=== PATIENT | female | born 1990 | race Caucasian/White ===

== ENCOUNTER 2019-11-23 13:10 | Day surgery (SDC) | payer OTHER, SELFPAY ==
[2019-11-18 15:12] VITALS: BMI 25.1
[2019-11-23] VITALS (12 sets, daily range): BP systolic 111–138; BP diastolic 65–86; PULSE 65–93; RESP 11–20; TEMP 36.2–36.9; O2SAT 95–100; BMI 25.1
--- NOTE | 2019-11-23 | PATH_ITS ---
[facility] Accession Number: [id number] . 01 Material submitted: . gallbladder - GALLBLADDER AND CONTENTS . 02 Diagnosis: Gallbladder and Contents: Chronic cholecystitis, cholesterolosis, and cholelithiasis. One benign cystic duct lymph node (0). MRV 11/25/2019 1414 Local . 02 Electronically signed: . Iza Dang MD, Pathologist NPI- [id number] . 01 Gross description: . Received in formalin, labeled gallbladder and contents, is an intact gallbladder (length-9.2 cm, diameter-2.5 cm) with salamanca-pink, smooth shiny serosa and a patent cystic duct. A 1.0 x 0.8 x 0.4 cm lymph node is identified. The lumen contains dark green viscous bile and one, perkins, hard calculus (3.5 x 2.3 x 1.8 cm) with a clear crystalline cut surface. The mucosa is perkins-green, smooth and flat. The wall is up to 0.1 cm thick. No nodules, masses or lesions are identified. Section code: (A1) cystic duct resection margin and two serial sections from the body; (A2) two longitudinal sections from the fundus; (A3) one bisected lymph node. ([id number]) /MRV 11/24/2019 1447 Local . 02 Pathologist provided ICD-10: K80.50, K81.1 . 02 CPT . 358314 Performed at: [facility] [address] [id number] MD Clay Issa MD Phone: [phone] Performed at: 02 [facility] [place] [address] [place], [place] [id number] MD Soledad Patterson MD Phone: [phone]
[2019-11-23] MEDS: LACTATED RINGERS 1,000 ML 100 ML IV ×3 (13:36→17:29)
--- NOTE | 2019-11-23 15:15 | PM.PREOP ---
Pre-operative Note Interval Note History & Physical reviewed/Exam performed by Physician: Yes Changes to H&P: No
--- NOTE | 2019-11-23 15:28 | PM.PREOP ---
Pre-operative Note Interval Note History & Physical reviewed/Exam performed by Physician: Yes Changes to H&P: No
[2019-11-23] MEDS: CEFAZOLIN 2 GM/100 ML FROZ.PIGGY IV (15:30)
--- NOTE | 2019-11-23 17:07 | SUR.OPER ---
Supine on padded OR bed, head on pillow, safety belt at thigh, left arm padded and tucked at side. Right arm secured on padded arm oard <90 degrees abduction. Legs uncrossed. Padded footboard in place. Tape over blanket to secure lower legs.
[2019-11-23] MEDS: ONDANSETRON 4 MG/2 ML INJ IV ×2 (17:28→17:36)
[2019-11-23] MEDS: fentaNYL 100 MCG/2 ML INJ IV ×3 (17:36→18:02)
--- NOTE | 2019-11-23 17:40 | PM.OP.1 ---
Operative Date/Time/Diagnoses Date of procedure: 11/23/19 Time of procedure: 17:40 Pre-op diagnosis: biliary colic Post-op diagnosis: same Procedure & Clinicians Procedure: laparoscopic cholecystectomy Same procedure as scheduled: Yes Indications: bliary colic Surgeon: Leonides Matos Anesthesia Type: General Operative Notes Findings: Large gallstone. Bleeding from the posterior branch of the cystic artery controlled with clips and endoloop. Specimen(s): other (Gallbladder) Estimated Blood Loss (mL): 700 Procedure in detail: The patient was brought to the operating room placed supine on the table. Bilateral lower extremity compression devices were applied. General anesthesia was induced and they were intubated with an endotracheal tube. They received 2g of Ancef prior to skin incision. A time-out was performed to ensure the correct patient procedure necessary equipment within the operating room. They were then prepped and draped in the usual sterile fashion. Infraumbilical incision was made the umbilical stalk was grasped and elevated and the fascia was sharply incised. The abdomen was entered atraumatically. A 10 mm trocar was then placed into the abdomen. Pneumoperitoneum was established. The laparoscopic camera was inserted into the abdomen inspection was made that demonstrated no evidence of injury upon entry. We then placed our working ports the 1st 11 mm port high in the epigastrium and then two 5mm in the right upper quadrant. The gallbladder was grasped and retracted over the liver and grasped laterally by the fundus. There was a large gallstone present. The triangle of Calot was exposed. The triangle of calot was then meticulosly skeletonized using hook electrocautery and demonstrated the cystic duct clearly entering the gallbladder the cystic artery and the liver and in the background. With the critical view of safety established the cystic duct was clipped twice proximally and once distally and then sharply divided and the cystic artery was taken in the same fashion. and there was a persistent bleeding of from the posterior branch of the cystic artery. It was grasped and controlled. The area was Bora is Coleman irrigated and suction to clearly establish our view. Next an endoloop was passed over the distal aspect of the cystic duct and was secured controlling the bleeding. The abdomen was then orthotic Kalyani irrigated and suctioned and hemostasis was observed. Next the gallbladder was removed from the liver bed using electro cautery. The liver bed was then inspected for hemostasis and this was achieved. The abdomen was irrigated with sterile saline and inspection was made that showed the clips in good position. The specimen was removed using Endo-Catch. The abdomen was desufflated. The the fascia of the umbilicus was closed with 0 Vicryl in a nogbcg-sl-snnak fashion. Skin incisions were irrigated and closed with 4-0 Monocryl. The wounds were sealed with Dermabond. Patient emerged from general anesthesia was extubated and transferred to the postoperative care unit missed stable condition. The sponge and instrument count at the end of the operation was correct. Complications: none Post-operative Condition: stable Disposition: same day surgery
--- NOTE | 2019-11-23 17:44 | SUR.PHASEI ---
Patient appearing more comfortable after being medicated for nausea and mild discomfort. VSS.
[2019-11-23] MEDS: METOCLOPRAMIDE 10 MG/2 ML INJ IV (18:04)
--- NOTE | 2019-11-23 18:14 | SUR.PHASEI ---
Gave RX for pain medication to to have filled at pharmacy while patient is in recovery.
[2019-11-23] MEDS: OXYCODONE/ACETAMINOPHEN 5/325 TABLET 1 TAB PO (18:32)
--- NOTE | 2019-11-23 18:52 | SUR.PHASEII ---
Crackers and gingerale provided to patient.
== END 2019-11-23 19:17 | disposition home or self-care (01) ==
PROVIDERS: Referring Provider Surgery; Visit Provider Surgery
PROC: 0FT44ZZ Resection of Gallbladder, Percutaneous Endoscopic Approach (ICD-10-PCS; CPT 47562; principal; 2019-11-23 14:15)
DX: K80.10 Calculus of gallbladder with chronic cholecystitis without obstruction (principal); J45.909 Unspecified asthma, uncomplicated
CPT/HCPCS: 47562; J0690; J1100; J2250; J2405; J2704; J2765; J3010